=== PATIENT | male | born 1995 | race Caucasian/White ===

== ENCOUNTER 2016-12-01 12:30 | Emergency (ER) | payer OTHER ==
[~2016-12-01] VITALS: Ht 167.6 cm; Wt 69.0 kg
[2016-12-01 12:34] VITALS: Ht 167.6 cm; Wt 69.0 kg
[2016-12-01] MEDS ORDERED: PROPARACAINE 0.5% 15 ML OPH RIGHT EYE ONE (13:30)
[2016-12-01] MEDS ORDERED: FLUORESCEIN STRIP RIGHT EYE ONE (13:30)
[2016-12-01] MEDS ORDERED: ACET-514 PO (14:34)
[2016-12-01] MEDS ORDERED: GEN15OI1 TOP (14:34)
--- NOTE | 2016-12-06 00:45 | ERA ---
ER Documentation Chief Complaint Date/Time DATE: 12/06/16 TIME: 00:45 Chief Complaint complains of eye pain HPI This is a 21-year-old male who is presenting with a complaint of foreign body in the right eye 1 day. Patient does not recall specific foreign body entering the eye. Patient denies sick contacts. Denies fever, changes in vision, photophobia, or headache. Patient denies any medical history. No current medications. No recent travel, antibiotic use, hospitalization. Vaccination status is up-to-date. ROS All systems reviewed and are negative except as per history of present illness. Medications Home Meds Active Scripts Acetaminophen (Acetaminophen) 325 Mg Tablet, 325 MG PO Q6 for 14 Days, TAB Prov:SERA SALCEDO PA-C 12/01/16 Gentamicin Sulfate* (Gentamicin Sulfate* Oint) 0.1% - 15 Gm Oint, 1 APPLIC TOP TID for 14 Days, #1 TUB Prov:SERA SALCEDO PA-C 12/01/16 Reported Medications [None] No Conflict Check 08/09/10 Allergies Allergies: Coded Allergies: No Known Allergies (Verified Allergy, Mild, 08/09/10) PMhx/Soc History of Surgery: No Anesthesia Reaction: No Hx Neurological Disorder: No Hx Respiratory Disorders: No Hx Cardiac Disorders: No Hx Psychiatric Problems: No Hx Miscellaneous Medical Probl: No Hx Alcohol Use: No Hx Substance Use: No Hx Tobacco Use: No Physical Exam Physical Exam Const: Otherwise well-appearing 21-year-old male in no acute distress Head: Atraumatic Eyes: Slit-lamp examination revealed no foreign body. Normal Conjunctiva. PERRLA, EOMI bilaterally. ENT: Normal External Ears, Nose and Mouth. Neck: Full range of motion..~ No meningismus. Resp: Clear to auscultation bilaterally Cardio: Regular rate and rhythm, no murmurs Abd: Soft, non tender, non distended. Normal bowel sounds Skin: No petechiae or rashes Back: No midline or flank tenderness Ext: No cyanosis, or edema Neur: Awake and alert Psych: Normal Mood and Affect Results 24 hrs Current Medications Medications (Trade) Dose Ordered Sig/Marcial Route PRN Reason Start Time Stop Time Status Last Admin Dose Admin Proparacaine HCl (Alcaine 0.5%) 1 drop ONCE ONCE RIGHT EYE 12/01/16 13:30 12/01/16 13:31 DC Fluorescein Sodium (Hrikj-O-Ffjfs) 1 strip ONCE ONCE RIGHT EYE 12/01/16 13:30 12/01/16 13:31 DC Procedures/MDM 21-year-old male presenting with foreign body sensation in the right eye 1 day with no recollection of foreign body entering the eye. Patient is in no acute distress. Patient states the discomfort is not painful and denies any pain medications at this time. Slit-lamp examination was done which revealed no abnormalities. No foreign bodies are visualized. Wood's lamp unavailable in the ED. Patient will be given prophylactic antibiotics and advised to follow- up with ophthalmology. Visual acuity was measured before and after slit-lamp procedure and remained unchanged. 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 At this time of little suspicion for acute glaucoma, keratitis or anterior uveitis. Patient will be prescribed antibiotics for possible foreign body and be reevaluated by ophthalmology in the next 3 days. Patient's vitals are stable and his current condition is appropriate for discharge. Patient will be given discharge instructions with return precautions. Patient's discharge medications will include acetaminophen for discomfort. Departure Diagnosis: Primary Impression: Pain in eye Qualified Code: H57.11 - Pain in eye, right Condition: Stable Patient Instructions: Corneal Abrasion Referrals: [facility] Hours: Mon - Fri 9:00 AM - 5:00 PM Additional Instructions: Follow up with ophthalmology in the next 1-2 days for a more thorough evaluation. Return the the emergency department immediately if symptoms worsen or change. If you have any questions regarding medications, ask your pharmacist or us before you leave. If any adverse reactions occur while taking your medications, discontinue the treatment and return to the emergency department immediately. Take your medications as directed, and complete the entire course of treatment. SERA SALCEDO PA-C Dec 06, 2016 00:45
== END 2016-12-01 14:42 | disposition home or self-care (01) ==
LOC: FTE 12:30
DX: H57.11 Ocular pain, right eye (principal)
CPT/HCPCS: 99283